=== PATIENT | male | born 1985 | race African-American/Black ===

== ENCOUNTER 2017-06-16 01:43 | Emergency (ER) | payer OTHER ==
[~2017-06-16] VITALS: Ht 182.9 cm; Wt 96.0 kg
[2017-06-16] MEDS ORDERED: SODIUM CHLORIDE 0.9% 1,000 ML IV ONE (02:19)
[2017-06-16 02:57] LABS: BASOPHILS % 0.8 % (0.0-2.0); EOSINOPHILS % 2.2 % (0.0-5.0); HEMATOCRIT. 45.1 % (42.0-52.0); HEMOGLOBIN. 14.7 g/dL (14.0-18.0); LYMPHOCYTES % 42.3 % (20.0-50.0); MEAN CORPUSCULAR VOLUME 85.9 fL (80.0-94.0); MEAN PLATELET VOLUME 7.4 fl (7.4-10.4); MONOCYTES % 13.2 % (2.0-8.0); NEUTROPHILS % 41.5 % (40.0-76.0); PLATELET 286 x1000/uL (130-400); RED BLOOD CELL COUNT 5.24 mill/uL (4.7-6.1); RED CELL DISTRIBUTION WIDTH 13.5 % (11.6-14.6)
[2017-06-16 03:08] LABS: CARBON DIOXIDE 12 mEq/L (21-32); CHLORIDE 106 mEq/L (98-107); ETHANOL BLOOD 101 mg/dL
[2017-06-16] MEDS ORDERED: LORAZEPAM 2MG/ML CPJ IV ONE (05:45)
[2017-06-16 09:15] VITALS: BP 115/65
== END 2017-06-16 11:05 | disposition home or self-care (01) ==
LOC: ER 01:43
DX: T42.4X2A Poisoning by benzodiazepines, intentional self-harm, initial encounter (principal); F32.9 Major depressive disorder, single episode, unspecified; F20.9 Schizophrenia, unspecified; F17.200 Nicotine dependence, unspecified, uncomplicated; Y92.89 Other specified places as the place of occurrence of the external cause
CPT/HCPCS: 36415; 80053; 80307; 80329; 85025; 93005; 96361; 96374; 99285; G0482; J2060; Z7610; J7030